=== PATIENT | female | born 1965 | race Caucasian/White ===

== ENCOUNTER 2018-11-24 16:37 | Emergency (ER) | payer MEDICARE ==
[~2018-11-24] VITALS: Ht 157.5 cm; Wt 60.6 kg
[~2018-11-24 16:37] MED LIST: IBUP-1984 PO; TRAM50TA2 PO
[2018-11-24 16:43] VITALS: BP 118/79
--- NOTE | 2018-11-24 16:58 | NUR ---
C/O FEVER AND CENTENO SINCE LAST Saturday11-20-18
[2018-11-24 17:33] LABS: CLARITY,URINE CLOUDY (Clear); COLOR,URINE YELLOW (Yellow); GLUCOSE, URINE NEGATIVE (Neg); KETONES,URINE NEGATIVE (Neg); LEUKOCYTE ESTERASE ,URINE MODERATE (Neg); NITRITES, URINE POSITIVE (Neg); OCCULT BLOOD,URINE MODERATE (Neg); PROTEIN,URINE TRACE mg/dl (Neg); UROBILINOGEN,URINE 0.2 E.U/dL (0.2-1.0)
[2018-11-24 17:34] LABS: UA COLLECTION TYPE CLN CATCH MIDSTREAM
[2018-11-24 17:40] LABS: MUCUS STRANDS MANY /LPF (Neg); SQUAMOUS EPITHELIAL CELL,UR MANY /LPF (FEW)
[2018-11-24 17:41] LABS: WBC,URINE 50-100 /HPF (0-4)
[2018-11-24 17:42] LABS: BACTERIA,URINE 3+ /HPF (Neg)
[2018-11-24 17:43] LABS: TRANSITIONAL EPI CELLS,URINE FEW /HPF
[2018-11-24] MEDS ORDERED: acetaminophen 325mg tablet PO ONE (17:50)
[2018-11-24] MEDS ORDERED: SULF1TAB49 PO (17:52)
== END 2018-11-24 18:17 | disposition home or self-care (01) ==
LOC: ER 16:37
DX: N39.0 Urinary tract infection, site not specified (principal); G89.29 Other chronic pain; Z90.49 Acquired absence of other specified parts of digestive tract; Z98.890 Other specified postprocedural states; Z88.6 Allergy status to analgesic agent; Z88.5 Allergy status to narcotic agent; Z88.8 Allergy status to other drugs, medicaments and biological substances; Z79.2 Long term (current) use of antibiotics; Z79.899 Other long term (current) drug therapy
CPT/HCPCS: 81001; 99283

== ENCOUNTER 2018-11-30 22:11 | Emergency (ER) | payer MEDICARE ==
[~2018-11-30] VITALS: Ht 157.5 cm; Wt 65.0 kg
[~2018-11-30 22:11] MED LIST changes: +SULF1TAB49 PO
[2018-11-30 22:33] VITALS: BP 107/71
[2018-11-30] MEDS ORDERED: AMOX-422 PO (23:40)
--- NOTE | 2018-11-30 23:44 | NUR ---
ASSISTED MD TO REMOVE TAMPON FROM VAGINA WITH SPECULUM AND O RINGS. ALL REMOVED AND PT FEELS BETTER AND THE CRAMPING AND PRESSURE IS GONE.
== END 2018-11-30 23:49 | disposition home or self-care (01) ==
LOC: ER 22:12
DX: T19.2XXA Foreign body in vulva and vagina, initial encounter (principal); G89.29 Other chronic pain; Z90.49 Acquired absence of other specified parts of digestive tract; Z88.6 Allergy status to analgesic agent; Z88.5 Allergy status to narcotic agent; Z88.8 Allergy status to other drugs, medicaments and biological substances; Z79.899 Other long term (current) drug therapy; X58.XXXA Exposure to other specified factors, initial encounter; Y93.89 Activity, other specified; Y92.89 Other specified places as the place of occurrence of the external cause; Y99.8 Other external cause status
CPT/HCPCS: 99284

== ENCOUNTER 2019-09-03 13:22 | Emergency (ER) | payer MEDICARE ==
[~2019-09-03] VITALS: Ht 157.5 cm; Wt 58.6 kg
[~2019-09-03 13:22] MED LIST changes: -SULF1TAB49 PO
[2019-09-03 14:15] LABS: CLARITY,URINE CLOUDY (Clear); COLOR,URINE YELLOW (Yellow); GLUCOSE, URINE NEGATIVE (Neg); KETONES,URINE TRACE mg/dl (Neg); LEUKOCYTE ESTERASE ,URINE LARGE (Neg); NITRITES, URINE POSITIVE (Neg); OCCULT BLOOD,URINE MODERATE (Neg); PROTEIN,URINE 100 mg/dl (Neg); UROBILINOGEN,URINE 0.2 E.U/dL (0.2-1.0)
[2019-09-03] MEDS ORDERED: normal saline 1000ML IV soln IV ONE (14:15)
[2019-09-03 14:20] LABS: UA COLLECTION TYPE CLN CATCH MIDSTREAM
[2019-09-03 14:22] LABS: WBC,URINE TNTC /HPF (0-4)
[2019-09-03 14:23] LABS: BACTERIA,URINE 4+ /HPF (Neg)
[2019-09-03 14:24] LABS: MUCUS STRANDS NONE SEEN /LPF (Neg); SQUAMOUS EPITHELIAL CELL,UR MODERATE /LPF (FEW)
[2019-09-03 14:51] LABS: URINE HCG NEGATIVE (NEG)
[2019-09-03 14:56] LABS: BASOPHILS # (AUTO) 0.1 X10'3 (0-0.2); BASOPHILS % (AUTO) 0.4 % (0-1); EOSINOPHILS % (AUTO) 0.1 % (0-6); HEMATOCRIT 38.8 % (35.0-45.0); HEMOGLOBIN 13.4 g/dl (12.0-16.0); LYMPHOCYTES # (AUTO) 0.9 X10'3 (1.1-4.8); LYMPHOCYTES % (AUTO) 5.9 % (21-51); MEAN CORPUSCULAR HEMOGLOBIN 30.7 PG (27.0-31.0); MEAN CORPUSCULAR HGB CONC 34.6 g/dL (33.0-36.5); MEAN CORPUSCULAR VOLUME 88.7 FL (78-98); MEAN PLATELET VOLUME 7.3 FL (7.4-10.4); NEUTROPHILS # (AUTO) 12.8 X10'3 (1.8-7.7); NEUTROPHILS % (AUTO) 86.6 % (42-75); PLATELET COUNT 250 X10'3 (140-440); RED BLOOD COUNT 4.37 X10'6 (4.20-5.60); RED CELL DISTRIBUTION WIDTH 13.6 % (11.5-14.5); WHITE BLOOD COUNT 14.8 X10'3 (4.5-11.0)
[2019-09-03 15:10] LABS: ALANINE AMINOTRANSFERASE 68 U/L (12-78); ALBUMIN 2.6 G/DL (3.4-5.0); ALBUMIN/GLOBULIN RATIO 0.5 (1.1-1.5); ALKALINE PHOSPHATASE 116 IU/L (46-116); ANION GAP 9 (8-16); ASPARTATE AMINO TRANSFERASE 28 U/L (10-37); BILIRUBIN,TOTAL 0.3 MG/DL (0.1-1.0); BLOOD UREA NITROGEN 12 MG/DL (7-18); BUN/CREATININE RATIO 16.7 (6.6-38.0); CHLORIDE 102 MMOL/L (99-107); CREATININE 0.72 MG/DL (0.40-0.90); GLUCOSE 117 MG/DL (70-104); SODIUM 136 MMOL/L (135-145); TOTAL CARBON DIOXIDE 25.5 MMOL/L (24-32); TOTAL PROTEIN 7.5 G/DL (6.4-8.2); eGFR 85 ML/MIN
[2019-09-03] MEDS ORDERED: LEVO750T21 PO (15:10)
[2019-09-03] MEDS ORDERED: PHEN-824 PO (15:10)
[2019-09-03] MEDS ORDERED: CefTRIAXone/D5W-Rocephin 1gm 50 ML IV ONE (15:10)
[2019-09-03] MEDS ORDERED: acetaminophen 325mg tablet PO ONE (15:55)
[2019-09-03 16:19] VITALS: BP 92/50
== END 2019-09-03 16:22 | disposition home or self-care (01) ==
LOC: ER 13:23
DX: N10 Acute pyelonephritis (principal); G89.29 Other chronic pain; F41.9 Anxiety disorder, unspecified; Z90.49 Acquired absence of other specified parts of digestive tract; Z88.6 Allergy status to analgesic agent; Z88.5 Allergy status to narcotic agent; Z79.899 Other long term (current) drug therapy
CPT/HCPCS: 36415; 80053; 81001; 81025; 83605; 84145; 85025; 87040; 87088; 96365; 99284; J0696; J7030; 87077; 87186

== ENCOUNTER 2022-01-06 13:27 | Emergency (ER) | payer MEDICARE ==
[~2022-01-06] VITALS: Ht 157.5 cm; Wt 61.4 kg
[~2022-01-06 13:27] MED LIST changes: +PHEN-824 PO
[2022-01-06 14:19] VITALS: BP 103/85
--- NOTE | 2022-01-06 19:04 | NUR ---
PT NOT IN LOBBY. 1ST CALL.
== END 2022-01-06 20:01 | disposition left against medical advice (07) ==
LOC: ER 13:28
DX: R06.02 Shortness of breath (principal); R05.9 Cough, unspecified; G89.29 Other chronic pain; F41.9 Anxiety disorder, unspecified; Z87.440 Personal history of urinary (tract) infections; Z90.89 Acquired absence of other organs; Z90.49 Acquired absence of other specified parts of digestive tract; Z88.5 Allergy status to narcotic agent; Z88.8 Allergy status to other drugs, medicaments and biological substances; Z79.899 Other long term (current) drug therapy; Z53.21 Procedure and treatment not carried out due to patient leaving prior to being seen by health care provider